=== PATIENT | male | born 1985 | race Caucasian/White ===

== ENCOUNTER 2023-04-13 13:51 | Emergency (ER) | payer OTHER, SELFPAY ==
[2023-04-13 13:56] VITALS: BP 162/90; PULSE 78; RESP 18; TEMP 36.9; O2SAT 100
--- NOTE | 2023-04-13 14:32 | ED.GENADUL_ITS ---
HPI General Date/Time Provider Initiated Documentation: 04/13/23 13:53 . HPI Narrative: MDM This is an overall very well-appearing normothermic and not tachycardic 37-year-old male with persistent headache. No focal neurological deficits to suggest CVA. Given my low suspicion for CVA I did not feel that the patient would be a tPA candidate nor does he require MRI. No chiropractic manipulation to suggest cervical arterial dissection. No fevers no neck stiffness to suggest meningitis. As result I feel that the risks of lumbar puncture outweigh the benefits. No history of tonic-clonic activity to suggest seizure so no indication for EEG. No pain out of proportion to suggest necrotizing soft tissue infection. No dental pain to suggest periapical abscess. No difficulty swallowing to suggest pharyngitis. Nontoxic-appearing and no cough so doubt bacterial tracheitis. Handling secretions and no fever so doubt epiglottitis. Good range of motion in neck so doubt retropharyngeal abscess. Uvula midline and no sore throat so doubt peritonsillar abscess. No history of recent generator exposure so doubt carbon monoxide toxicity. No rash to suggest zoster. No pain behind his eye to suggest cluster headache so will defer empiric oxygen. No sudden worsening of headache omid sudden onset headache to suggest subarachnoid hemorrhage. No history of any vomiting nor diurnal symptoms to suggest increased increased ICP nor intracranial malignancy. His vital signs were notable for elevated blood pressure. He is not having any visual disturbances in his diastolic blood pressure is less than 120 mmHg so my suspicion for hypertensive emergency is low. No mastoid tenderness to suggest mastoiditis. TMs clear bilaterally so not concern for acute otitis media. No jaw claudication to suggest increased risk for giant cell arteritis. Patient and the patient's male sex I am not suspicious for cervical venous thrombosis. Patient was concerned about the possibility of a mass. As a result we will order CT scan. Patient does have outpatient ENT follow-up. Will treat patient's pain with acetaminophen as he took ibuprofen just prior to arrival. Based on the patient's age and his lack of red flags I feel he is appropriate for empiric trial of discharge with expectant outpatient management. Patient's nurse AJ repeated his blood pressure which improved to 136/88 without intervention. Patient did ask for Percocet but advised him that there is no indication for opiates to treat his headache. 4:[address] scan was read as unremarkable. I met with the patient and explained his reassuring results. Patient was frustrated that we did not have an exact cause of his pain. I advised that we could be reassured that there is not any dangerous processes causing the patient's symptoms at this point time. Patient has no history of migraines however he certainly may be developing a migraine. Given that he lacks history of migraines will defer treatment with TCAs at this point given adverse risks of side effects. I reiterated that he would likely benefit from ENT follow-up with the possibility of MRI. In the event that there is a component of muscle spasm I did write patient for a short course of methocarbamol and we discussed not using this medicine well operating any machinery, driving, not drinking any alcohol. I advised that the patient should return to the emergency department if he developed any weakness any loss of bowel or bladder control or if he developed any nausea or vomiting. He understood his return indications and was discharged with empiric trial of expectant outpatient management. Chronic conditions affecting the care of the patient: N/A History obtained from an outside historian: N/A External record review: No [facility] [place] [facility] EMR records Medications: acetaminophen Social determinants of health affecting disposition: N/A Management discussed with: N/A Treatment/interventions considered: N/A Response to therapies provided: N/A HPI This is a previously healthy 37-year-old male arrived to the emergency department via private vehicle in the setting of headache. Patient reports that he has had a headache behind his right ear for the past approximately 2 years. He generally describes as a general ache and rates it at a 4 out of 10 in severity. He has previously been evaluated approximately 1 year ago by his PCP in [place] and had a CT scan which was reportedly normal. He has subsequently transitioned his care to the [place] and had an upcoming appointment which he canceled. [facility] to come [facility]. He reports that the pain occasionally increases up to an 8 out of 10. He denies any dental pain. He says that his pain has steadily worsened and now it is persistently closer to 6 or 8 out of 10. His headache is interfering with his ability to work and concentrate. He has had no sore throat. No difficulty hearing. 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 He said that he had an abnormal audiogram but he has not noticed any changes in his hearing. He does report that when he wears ear buds it worsens his pain on the right but that he discontinued wearing earbuds. He has had no difficulty swallowing no fevers no history of migraines no sore throat no visual changes. He has had no recent chiropractic manipulation. He has not recently been around any generators. He is having no neck pain. 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 Exam General: Well-appearing in no acute distress speaking in complete sentences. Head: Normocephalic, atraumatic. Eye:[Pupils equal, round reactive to light.] Extraocular eye movements intact. No conjunctival injection. No scleral icterus. Ear, nose, mouth, throat: Grossly normal inspection. Normal voice, handling secretions normally. Bilateral TMs clear. No mastoid tenderness bilaterally. No rash bilaterally.Uvula midline. No posterior oropharynx erythema. Neck: Trachea midline. Good range of motion in neck. Cardiovascular: Well-perfused distal extremities. Regular rate and rhythm. Respiratory: Nonlabored respiration. Clear lungs bilaterally. Gastrointestinal: Nondistended abdomen. Musculoskeletal: No edema. Moving all 4 extremities spontaneously. Skin: Normal for age and race, grossly normal temperature and turgor. No acute rash. Neurologic: Alert and appropriate, no apparent acute deficits. Cranial nerves II through XII intact grossly. No upper extremity weakness. No facial asymmetry. Psychiatric: Mood and manner are appropriate. Grooming and personal hygiene are appropriate. Related Data Home Medications Medication Instructions Recorded Confirmed methocarbamol 500 mg tablet 500 mg PO TID #7 tabs 04/13/23 Previous Rx's Medication Instructions Recorded methocarbamol 500 mg tablet 500 mg PO TID #7 tabs 04/13/23 Allergies Allergy/AdvReac Type Severity Reaction Status Date / Time No Known Allergies Allergy Unverified 04/13/23 14:03 General Stated Complaint: Headache RHEA: 3 Course Vital Signs Vital signs: Vital Signs Temperature 36.9 C 04/13/23 13:56 Pulse 78 04/13/23 13:56 Respiratory Rate 18 04/13/23 13:56 Blood Pressure 162/90 H 04/13/23 13:56 Pulse Oximetry 100 04/13/23 13:56 Temperature 36.9 C 04/13/23 13:56 Temperature Source Skin 04/13/23 13:56 Pulse 78 04/13/23 13:56 Respiratory Rate 18 04/13/23 13:56 Respiratory Effort Normal, Non-Labored 04/13/23 14:00 Blood Pressure 162/90 H 04/13/23 13:56 Pulse Oximetry 100 04/13/23 13:56 Oxygen Delivery Method Room Air 04/13/23 13:56 Oxygen Flow Rate 0 04/13/23 13:56 Pain Level 5 04/13/23 13:56 Medical Decision Making Quality:SDOH Health Related Social Needs: No Data to Display PFSH All Active Problems (Updated 04/13/23 @ 15:50 by Benjamín Ledbetter MD) Headache, unspecified (Acute) Social History Smoking/Tobacco Use Status: Never Smoking risk assessment performed?: Yes Alcohol Intake: current Alcohol Intake frequency: 0-2 drinks per day Substance use type: does not use Housing: house Do you feel safe at home: Yes Do you feel safe in your relationship?: Yes PAWSS Have you Been Recently Intoxicated or Drunk Within the Last 30 days?: No Have you Ever Experienced Previous Episodes of Alcohol Withdrawal?: No Have you ever Experienced Withdrawal Seizures?: No Have you ever Experienced Delirium Tremens(DT)s?: No Have you ever undergone Alcohol Rehabilitation Treatment (i.e, inpt ot outpatient treatment programs)?: No Have you ever Experienced Blackouts?: No Have you ever Combined Alcohol with other Downers within the last 90 days?: No Have you ever Combined Alcohol with any other Substance of Abuse during the last 90 days?: No Positive Blood Alcohol level on Presentation? [PCS.BAL]: No Evidence of Increased Autonomic Activity (i.e. HR>120, tremor, sweating, agitation, nausea)?: No Result: 0 Discharge Plan Disposition Patient Disposition: Home Discharge Details Clinical Impression: Headache, unspecified Primary Care Provider: Cain Conway ED Provider: Benjamín Ledbetter Home Meds and New Rx's Prescriptions: New methocarbamol 500 mg tablet 500 mg PO TID Qty: 7 0RF Discharge Instructions Instructions: General Headache (ED) Additional Instructions: You were seen in the emergency department for your headache. Your CAT scan showed no acute dangerous processes in your head. As we discussed please return to the emergency department if you began vomiting if you lose control of your bowels or bladder or if you develop any weakness. You are receiving a prescription for a muscle relaxer in the event that there is a component of muscle spasm causing your pain. Please take this as directed and do not drive drink alcohol or operate any machinery after taking this medicine. Please follow-up with the ear nose and throat team as previously advised. For your pain please take medications as follows: 1. Take acetaminophen (Tylenol), 1,000 mg (two 500 mg tabs) every 6 hours [2. Take ibuprofen (Advil), 400 mg every 6 hours.] Discharge Data Discharge Date/Time-TO BE ENTERED AT DEPARTURE: 04/13/23 16:18
--- NOTE | 2023-04-13 14:45 | DI.CT_ITS ---
Exam(s) CT HEAD WO EXAM: CT HEAD WO CLINICAL HISTORY: Right-sided posterior auricular headache. TECHNIQUE: Imaging Protocol: Axial computed tomography images with coronal and sagittal reformatted images were created and reviewed COMPARISON: No exams were available for comparison FINDINGS: Ventricles and Extra axial spaces: Normal in size and morphology for the patient's age. Hemorrhage: None. Cerebral parenchyma: No evidence of acute infarct or mass. Midline shift: None. Brainstem/Cerebellum: Normal. Calvarium: Normal. Visualized Paranasal sinuses:Mucosal thickening right maxillary sinus. Mastoids: Clear. Soft Tissues: Unremarkable. ORBITS: Unremarkable. PITUITARY: Normal. IMPRESSION: No acute intracranial process. RADIATION DOSE DELIVERED: 839.53mGy.cm Total DLP DATA REPOSITORY: All CT scans at this facility are submitted to the National Radiology Data Registry (NRDR) Dose Index Registry (DIR) with the [employer] ([employer]). RADIATION OPTIMIZATION: All CT scans at this facility use at least one of these dose optimization te chniques: automated exposure control; mA and/or kV adjustment per patient size (includes targeted exa ms where dose is matched to clinical indication); or iterative reconstruction.
[2023-04-13 15:11] VITALS: BP 136/88; PULSE 84; RESP 16; O2SAT 99
== END 2023-04-13 16:18 | disposition home or self-care (01) ==
PROVIDERS: Emergency Provider Emergency Medicine; PCP Physician Assistant Medical
DX: R51.9 Headache, unspecified (principal); Z86.69 Personal history of other diseases of the nervous system and sense organs
CPT/HCPCS: 99284; 70450; 99283